=== PATIENT | female | born 1975 | race Caucasian/White ===

== ENCOUNTER → 2016-11-18 | Outpatient (CLI) | payer BC, OTHER ==
--- NOTE | 2016-11-24 08:41 | MM ---
Reason for exam: screening (asymptomatic). Last mammogram was performed 1 year and 1 month ago. History: Patient had first child at age 33. Family history of breast cancer in maternal grandmother and breast cancer in paternal grandmother. Taking hormonal contraceptives for 4 years beginning at age 33. Physical Findings: A clinical breast exam by your physician is recommended on an annual basis and results should be correlated with mammographic findings. MG Screening Mammo w CAD Bilateral CC and MLO view(s) were taken. Prior study comparison: October 10, 2015, bilateral MG screening mammo w CAD. August 12, 2014, mammogram, performed at [place]. The breast tissue is almost entirely fat. No significant changes when compared with prior studies. ASSESSMENT: Negative, BI-RAD 1 RECOMMENDATION: Routine screening mammogram of both breasts in 1 year.
== END | disposition home or self-care (01) ==
LOC: RADMAMWWP 09:21
PROVIDERS: ATTEND Obstetrics & Gynecology
DX: Z12.31 Encounter for screening mammogram for malignant neoplasm of breast (principal)

== ENCOUNTER → 2017-12-14 | Outpatient (CLI) | payer OTHER ==
--- NOTE | 2017-12-15 10:59 | MM ---
Reason for exam: screening (asymptomatic). Last mammogram was performed 1 year and 1 month ago. History: Patient is postmenopausal and had first child at age 33. Family history of breast cancer in maternal grandmother and breast cancer in paternal grandmother. Took hormonal contraceptives for 4 years beginning at age 33. Physical Findings: A clinical breast exam by your physician is recommended on an annual basis and results should be correlated with mammographic findings. MG Screening Mammo w CAD Bilateral CC and MLO view(s) were taken. Prior study comparison: November 18, 2016, bilateral MG screening mammo w CAD. October 10, 2015, bilateral MG screening mammo w CAD. There are scattered fibroglandular densities. There is no discrete abnormality. No significant changes when compared with prior studies. ASSESSMENT: Negative, BI-RAD 1 RECOMMENDATION: Routine screening mammogram of both breasts in 1 year.
== END | disposition home or self-care (01) ==
LOC: RADMAMWWP 15:15
PROVIDERS: ATTEND Obstetrics & Gynecology
DX: Z12.31 Encounter for screening mammogram for malignant neoplasm of breast (principal)
CPT/HCPCS: 77067

== ENCOUNTER → 2019-06-22 | Outpatient (CLI) | payer BC ==
--- NOTE | 2019-06-25 14:26 | MM ---
Reason for exam: screening (asymptomatic). Last mammogram was performed 1 year and 6 months ago. History: Patient is postmenopausal and had first child at age 33. Family history of breast cancer in maternal grandmother and breast cancer in paternal grandmother. Took hormonal contraceptives for 4 years beginning at age 33. Physical Findings: A clinical breast exam by your physician is recommended on an annual basis and results should be correlated with mammographic findings. MG Screening Mammo w CAD Bilateral CC and MLO view(s) were taken. Prior study comparison: December 14, 2017, bilateral MG screening mammo w CAD. November 18, 2016, bilateral MG screening mammo w CAD. There are scattered fibroglandular densities. There is no discrete abnormality. No significant changes when compared with prior studies. ASSESSMENT: Negative, BI-RAD 1 RECOMMENDATION: Routine screening mammogram of both breasts in 1 year.
== END | disposition home or self-care (01) ==
LOC: RADMAMWWP 15:29
PROVIDERS: ATTEND Obstetrics & Gynecology
DX: Z12.31 Encounter for screening mammogram for malignant neoplasm of breast (principal); Z80.3 Family history of malignant neoplasm of breast
CPT/HCPCS: 77067

== ENCOUNTER → 2020-09-18 | Outpatient (CLI) | payer BC ==
--- NOTE | 2020-09-19 09:22 | MM ---
Reason for exam: screening (asymptomatic). Last mammogram was performed 1 year and 3 months ago. History: Patient is postmenopausal and had first child at age 33. Family history of breast cancer in maternal grandmother and breast cancer in paternal grandmother. Took hormonal contraceptives for 4 years beginning at age 33. Physical Findings: A clinical breast exam by your physician is recommended on an annual basis and results should be correlated with mammographic findings. MG Screening Mammo w CAD Bilateral CC and MLO view(s) were taken. Prior study comparison: June 22, 2019, bilateral MG screening mammo w CAD. December 14, 2017, bilateral MG screening mammo w CAD. There are scattered fibroglandular densities. There is no discrete abnormality. No significant changes when compared with prior studies. ASSESSMENT: Negative, BI-RAD 1 RECOMMENDATION: Routine screening mammogram of both breasts in 1 year.
== END | disposition home or self-care (01) ==
LOC: RADMAMWWP 15:09
PROVIDERS: ATTEND Obstetrics & Gynecology
DX: Z12.31 Encounter for screening mammogram for malignant neoplasm of breast (principal); Z78.0 Asymptomatic menopausal state; Z80.3 Family history of malignant neoplasm of breast
CPT/HCPCS: 77067

== ENCOUNTER → 2020-12-29 | Outpatient (CLI) | payer BC ==
--- NOTE | 2020-12-30 10:02 | XR ---
Lumbar spine HISTORY: Degenerative disc disease, pain 3 views of the lumbar spine There is multilevel spondylosis. Loss of disc height is present at intervertebral levels. Sclerosis i s present in the posterior elements of the lower lumbar spine. Lumbar vertebral bodies show preserved height, alignment, and bone mineralization. IUD is noted within the pelvis. IMPRESSION: Generative disc disease and facet arthropathy.
== END | disposition home or self-care (01) ==
LOC: RADXRMAIN 17:23
PROVIDERS: ATTEND Nurse Practitioner Family
DX: M51.36 Other intervertebral disc degeneration, lumbar region (principal); M12.88 Other specific arthropathies, not elsewhere classified, other specified site; M47.816 Spondylosis without myelopathy or radiculopathy, lumbar region
CPT/HCPCS: 72100

== ENCOUNTER → 2021-12-03 | Outpatient (CLI) | payer BC ==
--- NOTE | 2021-12-04 08:21 | MM ---
Reason for Exam: Screening (asymptomatic). Last mammogram was performed 1 year(s) and 3 month(s) ago. Patient History: Menarche at age 10. First Full-Term at age 33. Late child-bearing (after 30). Currently using Hormonal Contraceptives, beginning at age 38 for 7 years. Paternal grandmother had breast cancer. Maternal grandmother had breast cancer. Risk Values: Viji 5 year model risk: 1.3%. NCI Lifetime model risk: 12.5%. Prior Study Comparison: 12/14/2017 Bilateral Screening Mammogram, [facility]. 06/22/2019 Bilateral Screening Mammogram, [facility]. 09/18/2020 Bilateral Screening Mammogram, [facility]. Tissue Density: The breast tissue is almost entirely fat. Findings: Analyzed By CAD. There is no suspicious group of microcalcifications or new suspicious mass in either breast. Overall Assessment: Negative, BI-RAD 1 Management: Screening Mammogram of both breasts in 1 year. A clinical breast exam by your physician is recommended on an annual basis and results should be correlated with mammographic findings. Electronically signed and approved by: Delfino Mendes DO
== END | disposition home or self-care (01) ==
LOC: RADMAMWWP 13:10
PROVIDERS: ATTEND Obstetrics & Gynecology
DX: Z12.31 Encounter for screening mammogram for malignant neoplasm of breast (principal); Z80.3 Family history of malignant neoplasm of breast
CPT/HCPCS: 77067

== ENCOUNTER → 2022-05-06 | Outpatient (CLI) | payer BC ==
[2022-05-06 10:06] VITALS: BP 117/71; PULSE 89; RESP 18; TEMP 98
--- NOTE | 2022-05-06 14:31 | P.PAINPG ---
PQRS Measure Charge Sheet Comment: HISTORY OF PRESENT ILLNESS: 46 yr old female as a referral from [facility] presents today w severe and chronic L BP secondary to DDD, disc bulges and facet arthropathy without myelopathy for evaluation. Pt states pain level is at 9 /10 in intensity, constant, localized in the left lower lumbar spine, pressure like in character w shooting pain towards the LLE. Pain is provoked by bending, lifting. Pain is alleviated by medications (Ibu), topicals, chiropractic treatments monthly, massage therapy monthly, repositioning and rest. PMH: OA PSH: Bariatric Sleeve, L Achilles Tendon Repair, BL Carpal Tunnel Release, Addenoidectomy, Tonsillectomy SH: Hx of tobacco use, Occasional ETOH use, No illicit drug use FH: Ma- DM. All: See list Meds: See list REVIEW OF ORGAN SYSTEMS: CONSTITUTIONAL: No fevers or chills. No recent weight loss. NEUROLOGICAL: + numbness and tingling along the distal extremities. No seizure disorders or headaches. MUSCULOSKELETAL: + pain PSYCHIATRIC: Denies current depression or suicidal thoughts. Physical Examinations : Constitutional : Cooperative , not in acute distress . Neurologic : Cranial nerve II to XII intact. No focal neurological deficits. Psychiatric : alert & oriented x 3. Matching mood & appropriate affect. Judgment & insight intact. Musculoskeletal : Cervical Spine Motor strength in the deltoid and biceps: Normal right side. Normal Left side Motor strength biceps and the wrist extensors: Normal right side . Normal left side Motor strength in the triceps muscle: Normal right side. Normal left side Deep tendon reflexes: Normal at the biceps. Normal at Brachioradialis. Normal at triceps Vertebral body tenderness to deep palpation over Cervical facet loading test: positive bilaterally Spurling test: positive bilaterally Neck distraction test: positive bilaterally Anamaria sign: positive bilaterally Lumbar spine Motor strength lower extremities ,thigh and legs 5/5 Right side , 5/5 Left side Deep tendon reflexes : Normal Knee Jerk. Normal Ankle Jerk Vertebral body tenderness over L4 Lumbar facet Loading Test: positive Right / positive Left Range of motion of the lumbar spine Flexion 30 degrees, extension 10 degrees Straight Leg Raise test: Left/ Right positive at degree Lori test: positive right / positive left. Severe tenderness over the Sacroiliac joint on the Right / Left sides Gaenslen test: positive bilaterally Seated flexion test: positive bilaterally. Sacral spine : Severe tenderness over the Sacroiliac joint: right side / left side Range of motion: Flexion of the lumbar spine <60 degrees Range of motion: Extension of the lumbar spine <20 degrees Gaenslen's Test positive Rell's Test positive Lori test: positive right side / left side Thigh Thrust Test Sacral Thrust Test Imaging: MRI without contrast of the lumbar spine from 05/29/21 reviewed Assessment/ Plan : Lumbar DDD Recommendation of L TF MALIK L4-L5. May need a series of injections, up to 3 within a six-month timeframe, for optimal pain relief. Risks, benefits of procedure discussed and patient verbalized understanding. Admits to anticoagulants use. Protocol for discontinuation/continuation of medications carol procedure discussed. All questions answered. I have spent greater than 30 minutes on patient care today. Dr Hi was available by phone for the evaluation of this patient. The time was used to review the medical records including relevant urine studies and Prescription history (MAPs), review of the available imaging, evaluation and examination of the patient, coordination of care with the medical staff and if applicable referring physicians, as well as creation of the medical record Controlled Substance Measures - Controlled Substance Measures Is patient prescribed a controlled substance at discharge?: No
== END ==
LOC: PNWHC3 09:02
PROVIDERS: ATTEND Specialist
DX: M51.36 Other intervertebral disc degeneration, lumbar region (principal); Z79.01 Long term (current) use of anticoagulants; M19.90 Unspecified osteoarthritis, unspecified site
CPT/HCPCS: 99211

== ENCOUNTER → 2022-06-17 | Day surgery (SDC) | payer BC ==
[2022-06-15 10:40] VITALS: BMI 42.0
[~2022-06-17] MED LIST: IOPAMIDOL M200 10 ML VIAL ONE; IV FLUID CONTINUATION 1,000 ML IV ONE; LACTATED RINGERS 1,000 ML IV SCH; LIDOCAINE 1% (10MG/ML) FOR IV START INTRADERMA ONE; LIDOCAINE 1% (10MG/ML) FOR IV START INTRADERMA PRN; MIDAZOLAM 2 MG/2 ML VIAL ONE; fentaNYL (PF) 50 MCG/ML 2 ML AMP ONE; methylPREDNISolone ACETATE 80 MG/ML 1 ML VIAL ONE
[2022-06-17 07:58] VITALS: RESP 18; TEMP 97.9
--- NOTE | 2022-06-17 08:28 | P.PCN ---
Date of Procedure: 06/17/22 Procedure(s) Performed: PREOPERATIVE DIAGNOSIS: 1-Lumbar radiculopathy . 2-lumbar degenerative disc disease. POSTOPERATIVE DIAGNOSIS: Same as preoperative diagnoses. PROCEDURE 1. Transforaminal epidural steroid injection under fluoroscopic guidance at left L4-5 level. (Fluoroscopy images stored on file in the radiology Department ) 2. Lumbar epidurogram . ANESTHESIA: Local with 1% lidocaine 3 ml , moderate sedation with intravenous Versed 2 mg and fentanyle 50 micrograms. Sedation start time : 0 814 . Sedation. stop time : 0 825 . EBL: Minimal PROCEDURE INDICATION: The patient with low back pain and radiculopathy symptoms unresponsive to conservative treatment. PROCEDURE DESCRIPTION / TECHNIQUE: The patient was seen and identified in the preoperative area. Risks, benefits, complications, and alternatives were discussed with the patient. The patient agreed to proceed with the procedure and signed the consent. IV was started, and vital signs were stable. Patient was taken to the OR and time out was completed. The patient was placed in the prone position on procedure table and a pillow was placed under the abdomen to reduce lumbar lordosis. The lumbosacral area was prepped and draped in the usual sterile fashion. Critical pause was taken. Vital signs were closely monitored during the procedure. Conscious sedation was used during the procedure to decrease patient s anxiety. Using oblique fluoroscopy, the chin of the ``Fortino dog at Left L4-5 level was identified, and the skin and deeper tissues just below was localized with 1% lidocaine. Subsequently, a 22-gauge 5-inch spinal needle was advanced under a tunneled view fluoroscopic guidance just underneath the chin of the ``Fortino dog at the left L4-5 Under lateral fluoroscopy, the needle was then advanced to the posterior border of the interforaminal space. After negative aspiration of CSF and blood and with no paresthesias, 1 mL Isovue 200 contrast dye was injected excellent epidurogram and outlining of the nerve root Subsequently, 3 mL of block solution containing 80 mg Depo-Medrol and 2 mL of 0.9% normal saline PF was injected. Needle was removed . At the end of the procedure, skin was cleansed, and bandages were applied. COMPLICATIONS:none DISPOSITION / PLANS: The patient was placed in a supine position and transferred to the recovery area in a stable condition for observation. There was no evidence of lower extremity motor or sensory deficit after the procedure. Patient was discharged from the recovery room after meeting discharge criteria. Home discharge instructions were given to the patient by the staff. The patient was reexamined prior to discharge.
[2022-06-17 09:04] VITALS: BP 109/74; PULSE 81
--- NOTE | 2022-06-17 10:51 | FL ---
EXAMINATION TYPE: FL guided pain mgmt statistic DATE OF EXAM: 06/17/2022 CLINICAL HISTORY: Transforaminal injection TECHNIQUE: Fluoroscopy. COMPARISON: None. FINDINGS: Fluoroscopic guidance was provided during procedure performed by Dr. Hi. A total of 11 seconds of fluoroscopic time was utilized during the procedure. Please see separate report for pr ocedural details. IMPRESSION: As Above.
== END ==
LOC: ORPAIN 07:23
PROVIDERS: ATTEND Specialist
DX: M51.16 Intervertebral disc disorders with radiculopathy, lumbar region (principal)
CPT/HCPCS: 81025; 64483; 99152; J2250; J1040; J3010; Q9966

== ENCOUNTER 2022-08-10 09:15 | Day surgery (SDC) | payer BC ==
[~2022-08-10 09:15] MED LIST changes: -IOPAMIDOL M200 10 ML VIAL ONE; -IV FLUID CONTINUATION 1,000 ML IV ONE; -LIDOCAINE 1% (10MG/ML) FOR IV START INTRADERMA ONE; -MIDAZOLAM 2 MG/2 ML VIAL ONE; -fentaNYL (PF) 50 MCG/ML 2 ML AMP ONE; -methylPREDNISolone ACETATE 80 MG/ML 1 ML VIAL ONE
[2022-08-10 09:42] VITALS: TEMP 98.2
[2022-08-10] MEDS ORDERED: MIDAZOLAM 2 MG/2 ML VIAL ONE (09:53)
[2022-08-10] MEDS ORDERED: fentaNYL (PF) 50 MCG/ML 2 ML AMP ONE (09:53)
[2022-08-10] MEDS ORDERED: methylPREDNISolone ACETATE 80 MG/ML 1 ML VIAL ONE (09:53)
[2022-08-10] MEDS ORDERED: IOPAMIDOL M200 10 ML VIAL ONE (09:53)
--- NOTE | 2022-08-10 10:10 | P.PCN ---
Date of Procedure: 08/10/22 Procedure(s) Performed: PREOPERATIVE DIAGNOSIS: 1-Lumbar radiculopathy . 2-lumbar degenerative disc disease. POSTOPERATIVE DIAGNOSIS: Same as preoperative diagnoses. PROCEDURE 1. Transforaminal epidural steroid injection under fluoroscopic guidance at left L4-5 level. (Fluoroscopy images stored on file in the radiology Department ) 2. Lumbar epidurogram . ANESTHESIA: Local with 1% lidocaine 3 ml , moderate sedation with intravenous Versed 2 mg and fentanyle 50 micrograms. Sedation start time : 09 . Sedation. stop time : 1008 . EBL: Minimal PROCEDURE INDICATION: The patient with low back pain and radiculopathy symptoms unresponsive to conservative treatment. PROCEDURE DESCRIPTION / TECHNIQUE: The patient was seen and identified in the preoperative area. Risks, benefits, complications, and alternatives were discussed with the patient. The patient agreed to proceed with the procedure and signed the consent. IV was started, and vital signs were stable. Patient was taken to the OR and time out was completed. The patient was placed in the prone position on procedure table and a pillow was placed under the abdomen to reduce lumbar lordosis. The lumbosacral area was prepped and draped in the usual sterile fashion. Critical pause was taken. Vital signs were closely monitored during the procedure. Conscious sedation was used during the procedure to decrease patient s anxiety. Using oblique fluoroscopy, the chin of the `KaryFortino dog at Left L4-5 level was identified, and the skin and deeper tissues just below was localized with 1% lidocaine. Subsequently, a 22-gauge 5-inch spinal needle was advanced under a tunneled view fluoroscopic guidance just underneath the chin of the `Casandray dog at the left L4-5 Under lateral fluoroscopy, the needle was then advanced to the posterior border of the interforaminal space. After negative aspiration of CSF and blood and with no paresthesias, 1 mL Isovue 200 contrast dye was injected excellent epidurogram and outlining of the nerve root Subsequently, 3 mL of block solution containing 80 mg Depo-Medrol and 2 mL of 0.9% normal saline PF was injected. Needle was removed . At the end of the procedure, skin was cleansed, and bandages were applied. COMPLICATIONS:none DISPOSITION / PLANS: The patient was placed in a supine position and transferred to the recovery area in a stable condition for observation. There was no evidence of lower extremity motor or sensory deficit after the procedure. Patient was discharged from the recovery room after meeting discharge criteria. Home discharge instructions were given to the patient by the staff. The patient was reexamined prior to discharge.
[2022-08-10] MEDS ORDERED: IV FLUID CONTINUATION 600 ML IV ONE (10:12)
[2022-08-10 10:16] VITALS: RESP 18
[2022-08-10 10:47] VITALS: BP 113/75; PULSE 73
--- NOTE | 2022-08-10 11:08 | FL ---
EXAMINATION TYPE: FL guided pain mgmt statistic DATE OF EXAM: 08/10/2022 HISTORY: Fluoroscopy time DAP - 0.71998 of fluoroscopy provided. IMPRESSION: 1. Fluoroscopy time.
== END 2022-08-10 10:47 | disposition home or self-care (01) ==
LOC: ORPAIN 09:15
PROVIDERS: ATTEND Specialist
DX: M51.16 Intervertebral disc disorders with radiculopathy, lumbar region (principal)
CPT/HCPCS: 99152; 81025; 64483; J2250; J1040; J3010; Q9966

== ENCOUNTER → 2022-09-02 | Outpatient (CLI) | payer BC ==
[2022-09-02 10:16] VITALS: BP 121/85; PULSE 82; RESP 20; TEMP 97.7
--- NOTE | 2022-09-02 14:43 | P.PAINPG ---
Objective - Vital Signs Vital signs: Vital Signs Temp 97.7 F 09/02/22 10:09 Pulse 82 09/02/22 10:09 Resp 20 09/02/22 10:09 BP 121/85 09/02/22 10:09 Pulse Ox 96 09/02/22 10:09 FiO2 PQRS Measure Charge Sheet Mode of Arrival: Ambulatory Comment: A 47 yr old female with a history of severe and chronic LBP secondary to lumbar DDD and spondylosis with facet arthropathy without myelopathy presents today for L TFESI L4-L5. Pt states she experienced 85 % pain relief x 3 wks s/p procedure. Pain level is provoked at 8.5/10 in intensity, constant, localized in the L lumbar spine, dull/ achy/ sharp in character w shooting towards the L buttocks and occasionally to L calf. Pain is provoked by . Pain is alleviated with use of a hottub, PT started in 2021 but stopped to pursue injections, massage semi annually in 2021, chiropractic treatments as needed w last visit in Jun 2022, topical, repositioning and rest. Toradol injections are ineffective. She will follow up w Dr Jimenez Interventional pain procedures completed include L TFESI L4-L5 Patient is currently on Denies Patient denies any side effects of the medication(s), denies excessive drowsiness or sleepiness, denies suicidal ideation and reports that the current pain medication is helping to control the pain and improve activities of daily living. Patient denies any motor or sensory deficits. Patient denies any fever or night sweats, denies any change in the bowel movements or urination. Physical Examination: -Constitutional: Cooperative. Not in acute distress . - Neurologic: Cranial nerve II to XII intact. No focal neurological deficits. - Psychatric: Alert & oriented x 3. Matching mood & appropriate affect. Judgment and insight intact. - Musculoskeletal: Cervical spine: Muscle bulk/ tone/ strength in the bilateral upper extremities normal Vertebral body tenderness to palpation over Spurling test positive Distraction test positive Facet loading test positive TTP Thoracic spine Muscle bulk / tone/ strength in the bilateral paraspinal muscles normal Vertebral body tender to palpation over Facet loading test positive TTP Lumbar spine: Motor bulk/ tone/ strength lower extremities , thigh and legs : 5/5 Deep tendon reflexes : Normal Knee Jerk. Normal Ankle Jerk . Vertebral body tenderness to palpation over L4, L5 Lumbar Facet Loading Test positive Straight Leg Raise: positive at 30 degrees right side/ left side Gaenslen's Test positive Sacral spine : Severe tenderness over the Sacroiliac joint: right side / left side Range of motion: Flexion of the lumbar spine <60 degrees Range of motion: Extension of the lumbar spine <20 degrees Gaenslen's Test positive right side / left side Lori test: positive right side / left side Thigh Thrust Test positive right side / left side Sacral Thrust Test positive right side / left side Assessment and plan: Chronic LBP secondary to lumbar DDD, spondylosis with facet arthropathy without myelopathy Would like to follow up w Dr Jimenez to explore additional treatment options. All questions answered. I have spent less than 30 minutes on patient care today. Dr Hi was available by phone for the evaluation of this patient. The time was used to review the medical records including relevant urine studies and Prescription history (MAPs), review of the available imaging, evaluation and examination of the patient, coordination of care with the medical staff and if applicable refe rring physicians, as well as creation of the medical record - Pain Location Lower Back Non-Pharmacological Interventions: Exercise, Heat, Massage, Position/Reposition Pharmacological Interventions: Epidural, Scheduled Medication, Topical Medication PQRS Narrative: Blood Pressure 121/85 Pain Intensity [Lower Back] 8 Scale Used Numeric (1 - 10) Hx Alcohol Use (MH) Yes: SOCIAL Home Medications: Ambulatory Orders ALPRAZolam [Xanax] 0.5 mg PO Q6H PRN 06/15/22 Calcium Carbonate [Calcium] 600 mg PO DAILY 06/15/22 Ibuprofen 800 mg PO Q8H PRN 06/15/22 Multivitamins, Thera [Multivitamin (formulary)] 1 tab PO DAILY 06/15/22 Vitamin C (Unknown Dose) 1 tab PO DAILY 06/15/22 Controlled Substance Measures - Controlled Substance Measures Is patient prescribed a controlled substance at discharge?: No
== END ==
LOC: PNWHC3 09:52
PROVIDERS: ATTEND Specialist
DX: M51.36 Other intervertebral disc degeneration, lumbar region (principal); M47.816 Spondylosis without myelopathy or radiculopathy, lumbar region; G89.29 Other chronic pain
CPT/HCPCS: 99211

== ENCOUNTER → 2022-12-27 | Outpatient (CLI) | payer BC ==
--- NOTE | 2022-12-27 11:59 | MM ---
Reason for Exam: Screening (asymptomatic). Last mammogram was performed 1 year(s) and 1 month(s) ago. Patient History: Menarche at age 10. First Full-Term at age 33. Late child-bearing (after 30). Currently using Hormonal Contraceptives, beginning at age 38 for 7 years. Paternal grandmother had breast cancer. Maternal grandmother had breast cancer. Risk Values: Viji 5 year model risk: 1.3%. NCI Lifetime model risk: 12.3%. Prior Study Comparison: 06/22/2019 Bilateral Screening Mammogram, [facility]. 09/18/2020 Bilateral Screening Mammogram, [facility]. 12/03/2021 Bilateral MG screening mammo w CAD, [facility]. Tissue Density: The breast tissue is almost entirely fat. Findings: Analyzed By CAD. There is no suspicious group of microcalcifications or new suspicious mass in either breast. Overall Assessment: Negative, BI-RAD 1 Management: Screening Mammogram of both breasts in [address] [facility] will attempt to contact patient to return for supplemental views and ultrasound if indicated. Patient should continue monthly self-breast exams. A clinical breast exam by your physician is recommended on an annual basis. This exam should not preclude additional follow-up of suspicious palpable abnormalities. Note on Viji scores and lifetime risk: 1. A Viij score greater than 3% is considered moderate risk. If this is the case, consider specialist referral to assess eligibility for a risk reducing agent. 2. If overall lifetime risk for the development of breast cancer is 20% or higher, the patient may qualify for future screening with alternating mammogram and breast MRI. Electronically signed and approved by: Delfino Mendes DO
== END | disposition home or self-care (01) ==
LOC: RADMAMWWP 11:11
PROVIDERS: ATTEND Obstetrics & Gynecology
DX: Z12.31 Encounter for screening mammogram for malignant neoplasm of breast (principal); Z80.3 Family history of malignant neoplasm of breast
CPT/HCPCS: 77067

== ENCOUNTER 2023-05-06 07:36 | Day surgery (SDC) | payer BC ==
[2023-05-03 15:42] VITALS: BMI 41.1
[~2023-05-06 07:36] MED LIST changes: +ACETAMINOPHEN TAB 500 MG TAB PO PRN; +DEXAMETHASONE SOD PHOSPHATE 4 MG/ML 1 ML VIAL IV ONE; +HEPARIN SODIUM,PORCINE 5,000 UNIT/ML 1 ML VIAL SQ PRN; +HYDROmorphone 0.5 MG/0.5 ML SYRINGE IVP PRN; +ONDANSETRON 4 MG/2 ML VIAL IVP ONE; +SCOPOLAMINE 1 MG/72 HR PATCH TRANSDERM ONE; +droPERidol 5 MG/2 ML VIAL IVP ONE
[2023-05-06] MEDS ORDERED: LACTATED RINGERS 1,000 ML IV ONE ×3 (07:55→11:35)
[2023-05-06] MEDS ORDERED: fentaNYL (PF) 50 MCG/ML 2 ML AMP ONE (08:51)
[2023-05-06] MEDS ORDERED: SUCCINYLCHOLINE CHLORIDE 200 MG/10 ML VIAL IV ONE (08:51)
[2023-05-06] MEDS ORDERED: LIDOCAINE 1% INJ 10MG/ML (20 ML MDV) ONE (08:51)
[2023-05-06] MEDS ORDERED: GLYCOPYRROLATE 0.2 MG/ML 2 ML VIAL ONE (08:51)
[2023-05-06] MEDS ORDERED: HYDROmorphone (PF) 1 MG/ML ONE (08:51)
[2023-05-06] MEDS ORDERED: PROPOFOL 10 MG/ML 20 ML VIAL IV ONE (08:51)
[2023-05-06] MEDS ORDERED: MIDAZOLAM 2 MG/2 ML VIAL ONE (08:51)
[2023-05-06] MEDS ORDERED: NEOSTIGMINE 1 MG/ML 10 ML VIAL ONE (08:51)
[2023-05-06] MEDS ORDERED: ROCURONIUM 10 MG/ML (5 ML VIAL) IV ONE (08:51)
[2023-05-06] MEDS ORDERED: BUPIVACAINE (PF) 0.25% 30 ML VIAL SQ ONE (09:27)
--- NOTE | 2023-05-06 10:27 | P.OP ---
Date of Procedure: 05/06/23 Procedure(s) Performed: PREOPERATIVE DIAGNOSIS: Chronic cholecystitis POSTOPERATIVE DIAGNOSIS: Same PROCEDURE: Laparoscopic cholecystectomy SURGEON: Matthew EBL: Minimal see anesthesia record ANESTHESIA: Gen. COMPLICATIONS: None OPERATIVE PROCEDURE: The patient was brought and placed on the operating room table in the supine position. The patient was placed under general anesthesia at that time. The abdomen was prepped and draped in the usual sterile fashion. A small vertical infraumbilical incision was made. The fascia was grasped with the Kirk forceps. The fascia was retracted anteriorly. The Veress needle was advanced into the peritoneal cavity. The saline drop test was normal. Insufflation took place up to 15 mmHg. A 5 mm optical trocar was advanced and the peritoneal cavity. 2 additional 5 mm trochars were placed in the right upper quadrant under direct visualization. A 12 mm trocar was advanced into the epigastric incision site. The gallbladder was retracted superiorly and laterally. The peritoneum overlying the infundibulum was bluntly dissected. The patient's cystic duct was visualized. The junction between the cystic duct common and hepatic duct was identified. The critical view of safety was achieved after blunt dissection. The cystic duct was then divided after placement of 3 12 mm clips on the patient's side and one on the specimen side. The cystic artery was identified and clipped as well. A small vessel was seen along the gallbladder fossa and clipped as well. The gallbladder was then removed from the liver bed using electrocautery. The gallbladder was then removed from the epigastric trocar site with an Endo Catch bag. The gallbladder fossa was irrigated with saline. There was no evidence of any bleeding or biliary drainage seen. The fascia at the 12 millimeter site was closed using a Garcia-Odette 0 Vicryl stitch. The trochars were then removed. The skin at all 4 sites was closed using a 4-0 Monocryl stitch. Skin glue was utilized on the incision sites. At the end of this procedure the sponge and needle counts were correct. DISPOSITION: Stable to the recovery room
[2023-05-06 10:34] VITALS: TEMP 97.7
[2023-05-06 11:29] VITALS: RESP 16
[2023-05-06 11:54] VITALS: BP 145/85; PULSE 106
[2023-05-06] MEDS ORDERED: ACETAMINOPHEN TAB 325 MG TAB PO SCH (14:00)
[2023-05-06] MEDS ORDERED: IBUPROFEN 600 MG TAB PO SCH (17:00)
== END 2023-05-06 12:15 | disposition home or self-care (01) ==
LOC: OR 07:36
PROVIDERS: ATTEND Surgery
DX: K80.10 Calculus of gallbladder with chronic cholecystitis without obstruction (principal); E78.5 Hyperlipidemia, unspecified; F17.200 Nicotine dependence, unspecified, uncomplicated; Z90.89 Acquired absence of other organs; Z79.899 Other long term (current) drug therapy; Z98.890 Other specified postprocedural states
CPT/HCPCS: 47562; 81025; 88304; J2250; J0330; J1644; J1100; J2710; J0690; J2405; J2001; J3010; J1170 ×2; J2704; J1790; J0665

== ENCOUNTER → 2023-05-26 | Outpatient (CLI) | payer BC ==
--- NOTE | 2023-05-26 14:06 | P.SLEEP ---
History of Present Illness DATE: 05/26/2023 CONSULTATION/NEW PATIENT EVALUATION HISTORY OF PRESENT ILLNESS/SLEEP-WAKE EVALUATION: 47-year-old lady had been evaluated in the sleep center for possible obstructive sleep apnea hypopnea syndrome. SLEEP SCHEDULE: Usually sleep schedule on weekdays from 10 PM to 5:45 AM and on weekend from 11 PM to 89 AM. FALLING ASLEEP: Sometimes patient has difficulties with falling asleep. DURING SLEEP: Patient snores and wakes up from sleep up to 7 times. Positive history of restless leg symptoms and movements during the sleep. Positive history of grinding teeth. No history of hypnogogical hallucinations, sleep paralysis, or cataplexy. DURING THE DAY/WAKE STATE: In the morning patient wake up tired his episodes of irritability and anxiety. [place] sleepiness scale is 6. Patient doesn't take naps. PAST MEDICAL HISTORY: Hyperlipidemia, sinuses problems. PAST SURGICAL HISTORY: Tonsillectomy, adenoidectomy, gastric sleeve. MEDICATIONS: Belsomra 10 mg at bedtime, rosuvastatin 5 mg once a day. SOCIAL HISTORY: Positive for smoking half pack a day for about 30 years, quit 5 years ago, alcohol consumption occasional. FAMILY HISTORY: Hypertension, asthma, sleep apnea, cancer, diabetes, restless leg symptoms. REVIEW OF SYSTEMS: Snoring, multiple awakenings from sleep, feeling tiredness during the day. No fevers. No double vision. No recent chest pain. No shortness of breath. No abdominal pain. No bleeding episodes. No blood in urine. No seizure episodes. PHYSICAL EXAMINATION: GENERAL: A pleasant patient without any distress. VITAL SIGNS: BP 114/85 , HR 88 , RR 18 , weight 250.2 pounds, height 5 foot 2-1/4 inches, body mass index 45.4 . HEENT: PERRLA, EOMI. Evaluation of oropharynx showed tongue protrudes midline, low position of soft palate Mallampati 4. NECK: Supple. No JVD. Thyroid is not palpable. 16 inches in circumference. LUNGS: Clear to percussion and to auscultation. Good air exchange. No wheezing or rhonchi. HEART: S1, S2 regular. No murmurs, gallops or rubs. ABDOMEN: Soft and nontender. Bowel sounds are present. No organomegaly appreciated. EXTREMITIES: No clubbing or cyanosis. BREAK UP WORKER: Awake, alert, and oriented x3. Cranial nerves 2 to 7 intact. There is no fasciculation or atrophy noted. No focal deficits observed. ASSESSMENT: 1. Snoring, multiple awakenings from sleep up to 7 times, extremely low position of soft palate Mallampati 4, wide neck 16 inches in circumference. Obstructive sleep apnea hypopnea syndrome. 2. Obesity, BMI 45.4. 3. Hyperlipidemia. 4. Restless leg symptoms. 5 possibly periodic limb movements. 6 . Sinuses problems. 7. Status post tonsillectomy and adenoidectomy. 8. Status post gastric sleeve surgery. PLAN: 1. Polysomnography for evaluation of patient's breathing during sleep. 2. Following plan after reading sleep study. 3. Preferable position during sleep on the side. 4. No driving if patient feels any sleepiness. Patient is aware of civil and criminal liability for unsafe driving. 5. Sleep hygiene with regular sleep time for at least 7.5-8 hours. 6. Watching and losing weight. Thank you very much for referring this patient for consultation. Sincerely, Arvind Rivers MD, PhD, FAASM. Diplomat of [place] [employer], Sleep Medicine Board by [place] [employer] [place] [employer] Production Foreman [facility] [place] Past Medical History Past Medical History: Hyperlipidemia Additional Past Medical History / Comment(s): abdominal pain occas, hx DDD and sciatica History of Any Multi-Drug Resistant Organisms: None Reported Past Surgical History: Adenoidectomy, Bariatric Surgery, Ear Surgery, Orthopedic Surgery, Tonsillectomy Additional Past Surgical History / Comment(s): Bilateral carpal tunnel, left achilles tendon repair, gastric sleeve 5 yrs ago, tubes in ears. Past Anesthesia/Blood Transfusion Reactions: No Reported Reaction, Family History of Problems w/ Anesthesia, Motion Sickness Additional Past Anesthesia/Blood Transfusion Reaction / Comment(s): Mother PONV. no hx blood transfusion Smoking Status: Former smoker - Past Family History Mother Family Medical History: Cancer Medications and Allergies Home Medications Medication Instructions Recorded Confirmed Type Calcium Carbonate [Calcium] 600 mg PO DAILY 06/15/22 05/06/23 History Ibuprofen 800 mg PO Q8H PRN 06/15/22 05/06/23 History Multivitamins, Thera [Multivitamin 1 tab PO DAILY 06/15/22 05/06/23 History (formulary)] Vitamin C (Unknown Dose) 1 tab PO DAILY 06/15/22 05/06/23 History Cholecalciferol [Vitamin D3 (125 250 mcg PO DAILY 05/03/23 05/06/23 History Mcg = 5000 Iu)] Rosuvastatin Calcium 5 mg PO HS 05/03/23 05/06/23 History Suvorexant [Belsomra] 10 mg PO HS PRN 05/03/23 05/06/23 History levonorgestreL [Mirena] 1 each IY DIRECTED 05/03/23 05/06/23 History oxyCODONE HCL [OxyIR] 5 mg PO Q6H PRN 3 Days #6 tab 05/06/23 Rx Allergies Allergy/AdvReac Type Severity Reaction Status Date / Time No Known Allergies Allergy Verified 05/06/23 08:00 Sleep Note - Sleep Note Sleep Note: Temperature: Pulse Rate: Respiratory Rate: Blood Pressure: SpO2: Height: Weight: BMI: Neck Circumference:
== END ==
LOC: 3 N SLEEP 13:13
PROVIDERS: ATTEND Internal Medicine
DX: G47.33 Obstructive sleep apnea (adult) (pediatric) (principal); E66.9 Obesity, unspecified; E78.5 Hyperlipidemia, unspecified; J34.89 Other specified disorders of nose and nasal sinuses; G25.81 Restless legs syndrome; Z98.84 Bariatric surgery status; Z90.89 Acquired absence of other organs; Z68.42 Body mass index [BMI] 45.0-49.9, adult; Z87.891 Personal history of nicotine dependence
CPT/HCPCS: 99211

== ENCOUNTER 2023-06-29 19:52 | Outpatient (CLI) | payer BC ==
--- NOTE | 2023-07-06 11:50 | P.PCN ---
Description of Procedure: POLYSOMNOGRAPHY REPORT PROCEDURE(S)/DATE(S): Polysomnography 06/29/2023 CLINICAL: Patient has been seen in the sleep center for evaluation of obstructive sleep apnea-hypopnea syndrome. Please see my consultation. Sleep study has been done for evaluation of patient breathing during the sleep. PROCEDURE: The standard montage for clinical polysomnography included the electroencephalogram, the electrooculogram, the mentalis surface electromyography and Lead II cardiography. The respiratory battery consisted of measurements of nasal/buccal air flow, pressure transducer measurements from nose, thoracic and/or abdominal effort and intercostal surface electromyography. Video monitoring has been done to check for any parasomnia events. Nocturnal oxyhemoglobin saturations were obtained by finger oximetry. Step-jimenez titration with positive airway pressure was utilized to control the respiratory events, if necessary. RESULTS: During the diagnostic sleep study sleep efficiency was normal 92.2 %. Latency to sleep onset was normal 8.5 min. Sleep architecture showed stage NI was normal 7.1 %, Delta sleep was slightly short 4.7 %, REM sleep was slightly short 18.6 %. Respiratory channel showed 0 obstructive apneas, 2 mixed apneas, 0 central apneas, 38 hypopneas with lowest oxygen level 86 %. Total apnea hypopnea index was 6.1. Heart rate was in the range between 77 and 85, average 81. EMG showed 22.8 periodic limb movements per hour with 0.3 micro-arousals per h our. IMPRESSIONS: 1. Obstructive sleep apnea hypopnea syndrome in mild range. 2. Periodic limb movements have been documented. 3. History of insomnia. Please see other impressions from consultation PLAN: 1. I will see patient for follow-up visit to discuss results of sleep study and following plan. 2. Losing weight program. 3. Sleep hygiene with regular time in bed for at least 7-1/2 hours. 4. No driving if feeling sleepiness. 5. Please check iron profile including ferritin level. Low level of iron may increase the risk for periodic limb movements. Thank you very much for allowing me to participate in the management of your patient. Sincerely, Arvind Rivers MD, PhD, FAASM. Diplomat of [place] [employer], Sleep Medicine Board by [place] [employer] Chief Counsel of [facility] [place]
== END 2023-06-30 06:20 | disposition home or self-care (01) ==
LOC: 3 N SLEEP 19:52
PROVIDERS: ATTEND Internal Medicine
DX: G47.33 Obstructive sleep apnea (adult) (pediatric) (principal); G47.61 Periodic limb movement disorder; Z87.898 Personal history of other specified conditions
CPT/HCPCS: 95810

== ENCOUNTER → 2023-08-04 | Outpatient (CLI) | payer BC ==
[2023-08-04 16:25] VITALS: BP 147/87; PULSE 81; RESP 12; TEMP 98
--- NOTE | 2023-08-04 17:14 | P.PN ---
Subjective DATE: 08/04/2023 FOLLOW UP VISIT. Patient returned to sleep center for follow-up visit to discuss results of sleep study and following plan. I discussed results of sleep study with patient in details. Sleep study showed mild obstructive sleep apnea hypopnea syndrome and periodic limb movements. There was no significant amount of arousals related to periodic limb movements, but sleep study was done after patient took Belsomra 10 mg at bedtime. Possibly Belsomra prevents patient from awakenings from sleep. Patient continue to have awakenings from sleep at the present time. . [place] sleepiness scale is 6. MEDICATIONS:1. Belsomra 10 mg at bedtime 2. Rosuvastatin 5 mg once a day During physical exam: GENERAL: A pleasant patient without any distress. VITAL SIGNS: BP 117/87, HR 81, RR 12, weight 250, temperature 98.0, oxygen saturation at room air 98%. HEENT: PERRLA, EOMI. NECK: Supple. No JVD. LUNGS: Clear to percussion and to auscultation. Good air exchange. No wheezing or rhonchi. HEART: S1, S2 regular. ABDOMEN: Soft and nontender. EXTREMITIES: No clubbing or cyanosis. SHEET MANAGER: Awake, alert, and oriented x3. No focal deficit. Impressions: 1. Obstructive sleep apnea hypopnea syndrome. 2. Periodic limb movements 22.8 times per hour. 3. Insomnia, improved on Belsomra. 4. Hyperlipidemia. 5. History of cyanosis problems. 6. Status post tonsillectomy and adenoidectomy. 7. Status post gastric sleeve surgery. Plan: 1. Patient will start treatment with AutoPap. Atrial pressure 5 to 12 cm of water with nasal pillow mask. 2. Sleep hygiene with regular time in bed for at least 8 hours. 3. Patient will start Mirapex 0.125 mg 1 to 2 tablets at bedtime 4. Precautions related to driving. No driving if feel any sleepiness. Patient is aware about civil and criminal liability for unsafe driving, promised to follow recommendations. 5. Follow up visit in 30-90 days after patient will start using CPAP equipment. 6. Please check iron profile with ferritin level low level of iron may increase risk for periodically movements. Thank you very much for allowing me to participate in the management of your patient. Arvind Rivers MD, PhD, FAASM. Diplomat of [place] [employer] Medicine, Sleep Medicine Board by [place] Medicine [place] Cutter of [facility] [place] Objective - Vital Signs Vital signs: Vital Signs Temp 98.0 F 08/04/23 15:52 Pulse 81 08/04/23 15:52 Resp 12 08/04/23 15:52 BP 147/87 08/04/23 15:52 Pulse Ox 98 08/04/23 15:52 FiO2
== END ==
LOC: 3 N SLEEP 15:39
PROVIDERS: ATTEND Internal Medicine
DX: G47.33 Obstructive sleep apnea (adult) (pediatric) (principal); G47.61 Periodic limb movement disorder; G47.00 Insomnia, unspecified; E78.5 Hyperlipidemia, unspecified; Z86.69 Personal history of other diseases of the nervous system and sense organs; Z98.84 Bariatric surgery status; Z79.899 Other long term (current) drug therapy; Z98.890 Other specified postprocedural states; Z90.89 Acquired absence of other organs
CPT/HCPCS: 99212

== ENCOUNTER → 2024-01-06 | Outpatient (CLI) | payer BC ==
--- NOTE | 2024-01-26 20:58 | MM ---
Reason for Exam: Screening (asymptomatic). Last screening mammogram was performed 12 month(s) ago. Patient History: Menarche at age 10. First Full-Term at age 33. Late child-bearing (after 30). Currently using Hormonal Contraceptives, beginning at age 38 for 7 years. Paternal grandmother had breast cancer. Maternal grandmother had breast cancer. Risk Values: Viji 5 year model risk: 1.3%. NCI Lifetime model risk: 12.1%. Prior Study Comparison: 09/18/2020 Bilateral Screening Mammogram, [facility]. 12/03/2021 Bilateral MG screening mammo w CAD, [facility]. 12/27/2022 Bilateral MG screening mammo w CAD, [facility]. Tissue Density: There are scattered areas of fibroglandular density. Findings: Analyzed By CAD. There is no suspicious group of microcalcifications or new suspicious mass in either breast. Overall Assessment: Negative, BI-RAD 1 Management: Screening Mammogram of both breasts in 1 year. . Patient should continue monthly self-breast exams. A clinical breast exam by your physician is recommended on an annual basis. This exam should not preclude additional follow-up of suspicious palpable abnormalities. Note on Viji scores and lifetime risk: 1. A Viji score greater than 3% is considered moderate risk. If this is the case, consider specialist referral to assess eligibility for a risk reducing agent. 2. If overall lifetime risk for the development of breast cancer is 20% or higher, the patient may qualify for future screening with alternating mammogram and breast MRI. Electronically signed and approved by: Callie Samano M.D. Radiologist
== END | disposition home or self-care (01) ==
LOC: RADMAMWWP 11:08
PROVIDERS: ATTEND Obstetrics & Gynecology
DX: Z12.31 Encounter for screening mammogram for malignant neoplasm of breast
CPT/HCPCS: 77067

== ENCOUNTER → 2024-02-22 | Outpatient (CLI) | payer BC ==
[2024-02-22 12:44] VITALS: BP 107/76; PULSE 88; RESP 18
--- NOTE | 2024-02-22 14:42 | P.PAINPG ---
PQRS Measure Charge Sheet Comment: A 48 yr old female with a history of severe and chronic LBP > 2 yrs secondary to radiculopathy, spondylosis and facet arthropathy without myelopathy presents today for evaluation. Pain level is provoked at 7 /10 in intensity, constant, localized in the L lumbar spine, dull in character w occasional shooting towards the L buttocks and L hip. Pain is provoked by . Pain is alleviated with use of a hottub, PT started in 2021 but stopped to pursue injections, massage semi annually in 2021, chiropractic treatments as needed w last visit in Jun 2022, physician guided exercises every other day since Jun 2022, topical, repositioning and rest. Interventional pain procedures completed include L TFESI L4-L5 x1 (Jul 2022) Patient is currently on Ibu Patient denies any side effects of the medication(s), denies excessive drowsiness or sleepiness, denies suicidal ideation and reports that the current pain medication is helping to control the pain and improve activities of daily living. Patient denies any motor or sensory deficits. Patient denies any fever or night sweats, denies any change in the bowel movements or urination. Physical Examination: -Constitutional: Cooperative. Not in acute distress . - Neurologic: Cranial nerve II to XII intact. No focal neurological deficits. - Psychatric: Alert & oriented x 3. Matching mood & appropriate affect. Judgment and insight intact. - Musculoskeletal: Cervical spine: Muscle bulk/ tone/ strength in the bilateral upper extremities normal Vertebral body tenderness to palpation over Spurling test positive Distraction test positive Facet loading test positive TTP Thoracic spine Muscle bulk / tone/ strength in the bilateral paraspinal muscles normal Vertebral body tender to palpation over Facet loading test positive TTP Lumbar spine: Motor bulk/ tone/ strength lower extremities , thigh and legs : 5/5 Deep tendon reflexes : Normal Knee Jerk. Normal Ankle Jerk . Vertebral body tenderness to palpation over L4 Lumbar Facet Loading Test positive Straight Leg Raise: positive at 30 degrees right side/ left side Gaenslen's Test positive Sacral spine : Severe tenderness over the Sacroiliac joint: right side / left side Range of motion: Flexion of the lumbar spine <60 degrees Range of motion: Extension of the lumbar spine <20 degrees Gaenslen's Test positive right side / left side Lori test: positive right side / left side Thigh Thrust Test positive right side / left side Sacral Thrust Test positive right side / left side Assessment and plan: Chronic LBP secondary to radiculopathy, spondylosis with facet arthropathy without myelopathy Recommendation of L TFESI L4-L5 #2. Risks, benefits of procedure discussed and pt verbalized understanding. Protocol for discontinuation/ continuation of medications carol procedure discussed. All questions answered. I have spent less than 30 minutes on patient care today. Dr Hi was available by phone for the evaluation of this patient. The time was used to review the medical records including relevant urine studies and Prescription history (MAPs), review of the available imaging, evaluation and examination of the patient, coordination of care with the medical staff and if applicable referring physicians, as well as creation of the medical record PQRS Narrative: Hx Alcohol Use (MH) Yes: SOCIAL Home Medications: Ambulatory Orders Calcium Carbonate [Calcium] 600 mg PO DAILY 06/15/22 Ibuprofen 800 mg PO Q8H PRN 06/15/22 Multivitamins, Thera [Multivitamin (formulary)] 1 tab PO DAILY 06/15/22 Vitamin C (Unknown Dose) 1 tab PO DAILY 06/15/22 Cholecalciferol [Vitamin D3 (125 Mcg = 5000 Iu)] 250 mcg PO DAILY 05/03/23 Rosuvastatin Calcium 5 mg PO HS 05/03/23 Suvorexant [Belsomra] 10 mg PO HS PRN 05/03/23 levonorgestreL [Mirena] 1 each IY DIRECTED 05/03/23 oxyCODONE HCL [OxyIR] 5 mg PO Q6H PRN 3 Days #6 tab 05/06/23 Controlled Substance Measures - Controlled Substance Measures Is patient prescribed a controlled substance at discharge?: No
== END ==
LOC: PNWHC3 12:21
PROVIDERS: ATTEND Specialist
DX: M47.26 Other spondylosis with radiculopathy, lumbar region (principal)
CPT/HCPCS: 99211

== ENCOUNTER 2024-03-13 06:16 | Day surgery (SDC) | payer BC ==
[2024-03-08 15:29] VITALS: BMI 38.6
[2024-03-13] MEDS ORDERED: LACTATED RINGERS 1,000 ML IV SCH (06:30)
[2024-03-13 06:52] VITALS: RESP 16; TEMP 97.6
[2024-03-13 06:55] LABS: Glucose,Whole Blood 79 mg/dL (70-110)
[2024-03-13] MEDS ORDERED: IOPAMIDOL M200 10 ML VIAL ONE (07:07)
[2024-03-13] MEDS ORDERED: methylPREDNISolone ACETATE 80 MG/ML 1 ML VIAL ONE (07:07)
--- NOTE | 2024-03-13 07:16 | P.PCN ---
Date of Procedure: 03/13/24 Procedure(s) Performed: PREOPERATIVE DIAGNOSIS: 1-Lumbar radiculopathy . 2-lumbar herniated disc disease. POSTOPERATIVE DIAGNOSIS: 1-lumbar radiculopathy. 2-lumbar herniated disc disease. PROCEDURE 1. Transforaminal epidural steroid injection under fluoroscopic guidance at left L4-5 level. (Fluoroscopy images stored on file in the radiology Department ) 2. Lumbar epidurogram . ANESTHESIA: Local with 1% lidocaine 3 ml. EBL: Minimal PROCEDURE INDICATION: The patient with low back pain and radiculopathy symptoms unresponsive to conservative treatment. PROCEDURE DESCRIPTION / TECHNIQUE: The patient was seen and identified in the preoperative area. Risks, benefits, complications, and alternatives were discussed with the patient. The patient agreed to proceed with the procedure and signed the consent. IV was started, and vital signs were stable. Patient was taken to the OR and time out was completed. The patient was placed in the prone position on procedure table and a pillow was placed under the abdomen to reduce lumbar lordosis. The lumbosacral area was prepped and draped in the usual sterile fashion. Critical pause was taken. Vital signs were closely monitored during the procedure. Using oblique fluoroscopy, the chin of the ``Fortino dog at left L4-5 level was identified, and the skin and deeper tissues just below was localized with 1% lidocaine. Subsequently, a 22-gauge 5-inch spinal needle was advanced under a tunneled view fluoroscopic guidance just underneath the chin of the ``Fortino dog at the left L4-5 Under lateral fluoroscopy, the needle was then advanced to the posterior border of the interforaminal space. After negative aspiration of CSF and blood and with no paresthesias, 1 mL Isovue 200 contrast dye was injected excellent epidurogram and outlining of the nerve root Subsequently, 3 mL of block solution containing 80 mg Depo-Medrol and 2 mL of 0.9% normal saline PF was injected. Needle was removed . At the end of the procedure, skin was cleansed, and bandages were applied. COMPLICATIONS:none DISPOSITION / PLANS: The patient was placed in a supine position and transferred to the recovery area in a stable condition for observation. There was no evidence of lower extremity motor or sensory deficit after the procedure. Patient was discharged from the recovery room after meeting discharge criteria. Home discharge instructions were given to the patient by the staff. The patient was reexamined prior to discharge.
[2024-03-13 07:33] VITALS: BP 115/82; PULSE 87
--- NOTE | 2024-03-13 08:31 | FL ---
EXAMINATION TYPE: FL guided pain mgmt statistic DATE OF EXAM: 03/13/2024 FLUOROSCOPY Lumbar spine TRANS INJ FL TIME 6.1 SECS DAP .[id number]. One image submitted. [facility], , 03/13/2024 8:29 AM
== END 2024-03-13 07:45 | disposition home or self-care (01) ==
LOC: ORPAIN 06:16
PROVIDERS: ATTEND Specialist
DX: M51.16 Intervertebral disc disorders with radiculopathy, lumbar region (principal)
CPT/HCPCS: 64483; 81025

== ENCOUNTER → 2024-03-21 | Outpatient (CLI) | payer BC ==
[2024-03-21 17:10] VITALS: BP 109/77; PULSE 95; RESP 16; TEMP 98
--- NOTE | 2024-03-21 18:28 | P.PROGSL ---
Subjective DATE: 03/21/2024 FOLLOW UP VISIT. Patient with obstructive sleep apnea hypopnea syndrome return to sleep center for follow-up visit. Information from previous visit have been reviewed. [place] sleepiness scale is[]. I checked information from PAP unit. Patient is trying to use CPAP equipment, but still continued to have difficulties with CPAP. Difficulties mostly related not to the pressure, but to the mask usage. Patient most of the time sleeps on the belly position and she does not feel comfortable with the mask. She already tried different types of the mask including nasal pillows. PAP unit pressure 5-12, average 6.2 cm H2O. Usage is 17% for more then 4 hours, average 1.5 hours per night. Leak is in normal range 3.1 l/m. Apnea Hypopnea Index is 0, which is normal. MEDICATIONS have been reviewed, please see below. During physical exam: GENERAL: A pleasant patient without any distress. VITAL SIGNS: Please see below, weight is 219.6 lbs. HEENT: PERRLA, EOMI.. NECK: Supple. No JVD. LUNGS: Clear to percussion and to auscultation. Good air exchange. No wheezing or rhonchi. HEART: S1, S2 regular. ABDOMEN: Soft and nontender.[] EXTREMITIES: No clubbing or cyanosis. WHITE METAL CASTER: Awake, alert, and oriented x3. No focal deficit. Impressions: 1. Obstructive sleep apnea-hypopnea syndrome. Patient is trying to use CPAP equipment, but has difficulties mostly related to the mask not comfortable while she sleeps on the belly position. 2. Patient lost 30 pounds comparing with the time of the the sleep study. 3. Insomnia. 4. Hyperlipidemia. 5. Status post tonsillectomy and adenoidectomy. 6. Status post gastric sleeve surgery. Plan: 1. Continue using PAP equipment every night for the whole night. We provide patient with dreamwhear nasal mask. Patient will try to use it on the belly position. Will increase trial period for another 90 days. 2. Sleep hygiene with regular time in bed for at least 7.5-8 hours 3. PAP unit should stay lower then position of the head. 4. Advised patient to remove all remaining water from humidifier canister daily and make it dry after each usage. Refill canister with fresh distilled water before each usage. 5. Watching and continue losing weight. 6. Precautions related to driving. No driving if feel any sleepiness. 7. I will maintain prescription for PAP supplies including mask, tube, filters. 8. Follow up visit in 3-6 months or earlier if patient has any problems. Thank you very much for allowing me to participate in the management of your patient. Arvind Rivers MD, PhD, FAASM. Diplomat of [place] [employer], Sleep Medicine Board by [place] [employer] Purchasing Intern of [facility] [place] Objective - Vital Signs Vital Signs: Vital Signs Temp 98.0 F 03/21/24 17:08 Pulse 95 03/21/24 17:08 Resp 16 03/21/24 17:08 BP 109/77 03/21/24 17:08 Pulse Ox 98 03/21/24 17:08 FiO2 Intake & Output 03/20/24 03/21/24 03/21/24 18:59 06:59 18:59 Weight 99.507 kg Home Medications: Home Medications Medication Instructions Recorded Confirmed Type Calcium Carbonate [Calcium] 600 mg PO DAILY 06/15/22 03/13/24 History Multivitamins, Thera [Multivitamin 1 tab PO DAILY 06/15/22 03/13/24 History (formulary)] Vitamin C (Unknown Dose) 1 tab PO DAILY 06/15/22 03/13/24 History Cholecalciferol [Vitamin D3 (125 250 mcg PO DAILY 05/03/23 03/13/24 History Mcg = 5000 Iu)] Rosuvastatin Calcium 5 mg PO HS 05/03/23 03/13/24 History Suvorexant [Belsomra] 10 mg PO HS PRN 05/03/23 03/13/24 History levonorgestreL [Mirena] 1 each IY DIRECTED 05/03/23 03/13/24 History ALPRAZolam [Xanax] 0.5 mg PO DAILY PRN 03/08/24 03/13/24 History Tirzepatide [Zepbound] 10 mg SQ AL 03/08/24 03/13/24 History
== END ==
LOC: 3 N SLEEP 16:04
PROVIDERS: ATTEND Internal Medicine
CPT/HCPCS: 99212

== ENCOUNTER → 2024-05-14 | Outpatient (CLI) | payer BC ==
[2024-05-14 12:27] VITALS: BP 119/88; PULSE 87; RESP 19; TEMP 97.5
--- NOTE | 2024-05-14 14:54 | P.PAINPG ---
PQRS Measure Charge Sheet Comment: A 48 yr old female with a history of severe and chronic LBP > 2 yrs secondary to radiculopathy, spondylosis and facet arthropathy without myelopathy presents today for evaluation s/p L TFESI L4-L5 #2. Pt states she experienced 70% pain relief x 8 wks s/p procedure. Pain level is provoked at 5-6 /10 in intensity, constant, localized in the L lumbar spine, dull in character w occasional shooting towards the LLE. Pain is provoked by standing for periods > 30 min. Pain is alleviated with use of a hot tub, PT started in 2021 but stopped to pursue injections, massage semi annually in 2021, chiropractic treatments as needed w last visit in Jun 2022, physician guided exercises every other day since Jun 2022, topical, repositioning and rest. Interventional pain procedures completed include L TFESI L4-L5 x2 (Jul 2022, Feb 2024) Patient is currently on Flexeril, Ibu Patient denies any side effects of the medication(s), denies excessive drowsiness or sleepiness, denies suicidal ideation and reports that the current pain medication is helping to control the pain and improve activities of daily living. Patient denies any motor or sensory deficits. Patient denies any fever or night sweats, denies any change in the bowel movements or urination. Physical Examination: -Constitutional: Cooperative. Not in acute distress . - Neurologic: Cranial nerve II to XII intact. No focal neurological deficits. - Psychatric: Alert & oriented x 3. Matching mood & appropriate affect. Judgment and insight intact. - Musculoskeletal: Cervical spine: Muscle bulk/ tone/ strength in the bilateral upper extremities normal Vertebral body tenderness to palpation over Spurling test positive Distraction test positive Facet loading test positive TTP Thoracic spine Muscle bulk / tone/ strength in the bilateral paraspinal muscles normal Vertebral body tender to palpation over Facet loading test positive TTP Lumbar spine: Motor bulk/ tone/ strength lower extremities , thigh and legs : 5/5 Deep tendon reflexes : Normal Knee Jerk. Normal Ankle Jerk . Vertebral body tenderness to palpation over L4 Lumbar Facet Loading Test positive Straight Leg Raise: positive at 30 degrees right side/ left side Gaenslen's Test positive Sacral spine : Severe tenderness over the Sacroiliac joint: right side / left side Range of motion: Flexion of the lumbar spine <60 degrees Range of motion: Extension of the lumbar spine <20 degrees Gaenslen's Test positive right side / left side Lori test: positive right side / left side Thigh Thrust Test positive right side / left side Sacral Thrust Test positive right side / left side Assessment and plan: Chronic LBP secondary to radiculopathy, spondylosis with facet arthropathy without myelopathy Recommendation of L paramedian MALIK L4-L5 #3. Risks, benefits of procedure discussed and pt verbalized understanding. Protocol for discontinuation/ continuation of medications carol procedure discussed. All questions answered. I have spent less than 30 minutes on patient care today. Dr Hi was available by phone for the evaluation of this patient. The time was used to review the medical records including relevant urine studies and Prescription history (MAPs), review of the available imaging, evaluation and examination of the patient, coordination of care with the medical staff and if applicable referring physicians, as well as creation of the medical record PQRS Narrative: Hx Alcohol Use (MH) Yes: SOCIAL Home Medications: Ambulatory Orders Calcium Carbonate [Calcium] 600 mg PO DAILY 06/15/22 Multivitamins, Thera [Multivitamin (formulary)] 1 tab PO DAILY 06/15/22 Vitamin C (Unknown Dose) 1 tab PO DAILY 06/15/22 Cholecalciferol [Vitamin D3 (125 Mcg = 5000 Iu)] 250 mcg PO DAILY 05/03/23 Rosuvastatin Calcium 5 mg PO HS 05/03/23 Suvorexant [Belsomra] 10 mg PO HS PRN 05/03/23 levonorgestreL [Mirena] 1 each IY DIRECTED 05/03/23 ALPRAZolam [Xanax] 0.5 mg PO DAILY PRN 03/08/24 Tirzepatide [Zepbound] 10 mg SQ AL 03/08/24 Cyclobenzaprine [Flexeril] 10 mg PO HS PRN 30 Days #30 tab 05/14/24 diazePAM [Valium] 5 mg PO DAILY PRN 1 Days #2 tab 05/14/24 Controlled Substance Measures - Controlled Substance Measures Is patient prescribed a controlled substance at discharge?: Yes When asked, does pt state using other controlled substances?: No If prescribed controlled substance>3 days was MAPS reviewed?: Prescribed <3 Days
== END ==
LOC: PNWHC3 12:11
PROVIDERS: ATTEND Specialist
DX: M47.26 Other spondylosis with radiculopathy, lumbar region (principal)
CPT/HCPCS: 99211

== ENCOUNTER → 2024-10-31 | Outpatient (CLI) | payer BC ==
[2024-10-31 14:05] VITALS: BP 114/76; PULSE 84; RESP 16; TEMP 98.1
--- NOTE | 2024-10-31 14:29 | P.PROGSL ---
Subjective DATE: 10/31/2024 FOLLOW UP VISIT. Patient with obstructive sleep apnea hypopnea syndrome return to sleep center for follow-up visit. Information from previous visit have been reviewed. Patient is using PAP equipment every night for the whole night, getting PAP supplies in time. The patient does not have significant problems with the mask, PAP unit and humidification. [place] sleepiness scale is 7, which is normal. I checked information from PAP unit. PAP unit pressure 5-12, average 7.5 cm H2O. Usage is 80% for more then 4 hours, average 4.1 hours per night. Leak is 7 l/m, which is in acceptable range. Apnea Hypopnea Index is 0.2, which is perfect. MEDICATIONS have been reviewed, please see below. During physical exam: GENERAL: A pleasant patient without any distress. VITAL SIGNS: Please see below, weight is 192 lbs. HEENT: PERRLA, EOMI.low position of soft palate, Mallapati 3. NECK: Supple. No JVD. LUNGS: Clear to percussion and to auscultation. Good air exchange. No wheezing or rhonchi. HEART: S1, S2 regular. ABDOMEN: Soft and nontender.[] EXTREMITIES: No clubbing or cyanosis. 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 No focal deficit. Impressions: 1. Obstructive sleep apnea-hypopnea syndrome. Patient demonstrated great compliance with treatment, benefiting from treatment. 2. Mild obesity, BMI 34, patient lost 27 pounds since previous visit and about 50 pounds for the last year. 3. History of insomnia. 4. Hyperlipidemia. 5. Status post gastric sleeve surgery in the past. 6. Status post tonsillectomy and adenoidectomy. Plan: 1. Continue using PAP equipment every night for the whole night. 2. Sleep hygiene with regular time in bed for at least 7.5-8 hours 3. PAP unit should stay lower then position of the head. 4. Advised patient to remove all remaining water from humidifier canister daily and make it dry after each usage. Refill canister with fresh distilled water before each usage. 5. Watching weight. 6. Precautions related to driving. No driving if feel any sleepiness. 7. I will maintain prescription for PAP supplies including mask, tube, filters. 8. Follow up visit in 8 months or earlier if patient has any problems. Thank you very much for allowing me to participate in the management of your patient. Arvind Rivers MD, PhD, FAASM. Diplomat of [place] [employer], Sleep Medicine Board by [place] [employer] [facility] Objective - Vital Signs Vital Signs: Vital Signs Temp 98.1 F 10/31/24 14:04 Pulse 84 10/31/24 14:04 Resp 16 10/31/24 14:04 BP 114/76 10/31/24 14:04 Pulse Ox 96 10/31/24 14:04 FiO2 Intake & Output 10/30/24 10/31/24 10/31/24 18:59 06:59 18:59 Weight 87.09 kg Home Medications: Home Medications Medication Instructions Recorded Confirmed Type Calcium Carbonate [Calcium] 600 mg PO DAILY 06/15/22 07/06/24 History Multivitamins, Thera [Multivitamin 1 tab PO DAILY 06/15/22 10/31/24 History (formulary)] Vitamin C (Unknown Dose) 1 tab PO DAILY 06/15/22 10/31/24 History Cholecalciferol [Vitamin D3 (125 250 mcg PO DAILY 05/03/23 07/06/24 History Mcg = 5000 Iu)] Rosuvastatin Calcium 5 mg PO HS 05/03/23 10/31/24 History Suvorexant [Belsomra] 10 mg PO HS PRN 05/03/23 07/06/24 History levonorgestreL [Mirena] 1 each IY DIRECTED 05/03/23 07/06/24 History ALPRAZolam [Xanax] 0.5 mg PO DAILY PRN 03/08/24 07/06/24 History Tirzepatide [Zepbound] 12.5 mg SQ Q14D 03/08/24 07/06/24 History Cyclobenzaprine [Flexeril] 10 mg PO HS PRN 30 Days #30 tab 05/14/24 10/31/24 Rx Ibuprofen [Motrin] 800 mg PO DIRECTED PRN 10/31/24 10/31/24 History
== END ==
LOC: 3 N SLEEP 13:31
PROVIDERS: ATTEND Internal Medicine
DX: G47.33 Obstructive sleep apnea (adult) (pediatric) (principal); E66.9 Obesity, unspecified; E78.5 Hyperlipidemia, unspecified; Z98.84 Bariatric surgery status; Z90.89 Acquired absence of other organs; Z98.890 Other specified postprocedural states; Z68.34 Body mass index [BMI] 34.0-34.9, adult; Z99.89 Dependence on other enabling machines and devices
CPT/HCPCS: 99212